=== PATIENT | male | born 2005 | race Caucasian/White ===

== ENCOUNTER 2025-04-07 17:44 | Emergency (ER) | payer SELFPAY ==
[~2025-04-07] VITALS: Ht 177.8 cm; Wt 73.0 kg
[2025-04-07 17:48] VITALS: O2SAT 98
[2025-04-07] MEDS: BACITRACIN ZINC OINT UDPKT TOP ONE (19:45)
[2025-04-07] MEDS ORDERED: TETANUS, DIPHTHERIA, PERTUSSIS VAC/PF 0.5ML (>10YR OLD) IM ONE (19:45)
[2025-04-07] MEDS: LIDOCAINE HCL/EPINEPHRINE 1%-EPI 1:100,000 20ML VIAL INFIL ONE (19:45)
[2025-04-07] MEDS ORDERED: BO1 TP (21:43)
[2025-04-07] MEDS: TETANUS, DIPHTHERIA, PERTUSSIS VAC/PF 0.5ML (>10YR OLD) IM ONE (21:44)
[2025-04-07 22:00] VITALS: BP 125/68; PULSE 76; RESP 19; TEMP 36.8; O2SAT 100
== END 2025-04-07 22:01 | disposition home or self-care (01) ==
LOC: ER 17:44
DX: S81.012A Laceration without foreign body, left knee, initial encounter (principal); W19.XXXA Unspecified fall, initial encounter; Y93.89 Activity, other specified; Y92.89 Other specified places as the place of occurrence of the external cause; Y99.8 Other external cause status
CPT/HCPCS: 99283; 73560; 90715; 12002; 90471; J2004